=== PATIENT | male | born 1975 | race Caucasian/White ===

== ENCOUNTER 2023-01-02 00:46 | Day surgery (SDC) | payer OTHER, SELFPAY ==
[2022-12-23 13:32] VITALS: BMI 32.0
[2023-01-02 12:07] VITALS: BP 151/104; PULSE 59; RESP 18; TEMP 35.9; O2SAT 100
[2023-01-02] MEDS: LACTATED RINGERS 1,000 ML 150 ML IV CONT (12:10)
--- NOTE | 2023-01-02 12:28 | WPDANESEPPF ---
Anes - Initial Pre Proc Eval Procedure: Operation Date: 01/02/23 13:30 Proposed Procedures p Colonoscopy - Nasim Gallagher MD Date/Time: 01/02/23 12:28 Surgeon: Nasim Gallagher MD Pre Op Diagnosis: blood in stool Patient Data Age: 47 Gender: M Height: 1.83 m Weight: 104.3 kg Last Vital Signs Temp 35.9 C L 01/02/23 12:07 Pulse 59 L 01/02/23 12:07 Resp 18 01/02/23 12:07 BP 151/104 H 01/02/23 12:07 Pulse Ox 100 01/02/23 12:07 O2 Del Method Room Air 01/02/23 12:07 Allergies Allergy/AdvReac Type Severity Reaction Status Date / Time amoxicillin Allergy Unknown Nausea Verified 01/02/23 12:06 NSAIDS (Non-Steroidal Allergy Unknown Nausea Verified 01/02/23 12:06 Anti-Inflamma Home Medications Medication Instructions Recorded Confirmed Type irbesartan 300 mg tablet 300 mg PO DAILY 12/23/22 01/02/23 History rosuvastatin 10 mg tablet 10 mg PO DAILY 12/23/22 01/02/23 History Patient hx anesthesia problems: none Family hx anesthesia problems: none Results Review: All pre-operative results and documents have been reviewed as part of the pre-operative evaluation. [facility] Past Medical History Medical History (Updated 01/02/23 @ 12:29 by Timoteo Banks MD) HTN (hypertension) Obesity Surgical History Surgical History (Updated 01/02/23 @ 12:31 by Timoteo Banks MD) History of lumbar surgery Social History Social History Smoking status: Never smoker Alcohol intake: current Drinks per week: 2 Substance use: never Substance use type: does not use Living arrangements: with family Spiritual care concerns: No Anes - Eval Final PreProcedure Day of Procedure 01/02/23 12:28 Patient weight: obese Heart: regular rate and rhythm Lungs: clear to auscultation Airway: Mallampati scale class II Neurological: alert and oriented Last oral intake: >/= 8 hours ASA classification: II Emergent: no Anesthetic plan: proceed Anesthesia type and monitoring: general GIVS and standard monitoring Results Review: All pre-operative results and documents have been reviewed as part of the pre-operative evaluation. Informed Consent: The patient's anesthetic plan and its attendant risks and benefits were discussed with the patient/family/POA. Questions were solicited and answers provided to the satisfaction of the patient/family/POA.
--- NOTE | 2023-01-02 12:47 | PM.HPGS ---
History of Present Illness History of Present Illness Consent: Risks, benefits, and alternatives have been discussed and questions answered. Patient agrees to proceed with procedure. Chief complaint: blood in stool Narrative: Narendra Méndez is a 47 year old male her for first screening colonoscopy Review of Systems Constitutional: Constitutional: Denies headache(s) and Denies weakness Eyes: Eyes: Denies blurry vision ENT: Reports Normal hearing present, Denies headache(s) and Denies neck pain Cardiovascular: Cardiovascular: Denies chest pain and Denies dyspnea Respiratory: Respiratory: Denies dyspnea Gastrointestinal: Gastrointestinal: Reports no additional gastrointestinal complaints Genitourinary: Genitourinary: Denies dysuria Musculoskeletal: Musculoskeletal: Denies neck pain Integumentary/Breasts: Skin/Breast: Denies dry skin Neurologic: Reports Normal hearing present, Denies headache(s) and Denies weakness Psychiatric: Psychiatric: Denies anxiety Endocrine: Endocrine: Denies change in body appearance Hematologic/Lymphatic: Hematologic/Lymphatic: Denies easy bleeding Allergic/Immunologic: Allergic/Immunologic: Denies urticaria [facility] Past Medical History Medical History (Updated 01/02/23 @ 12:48 by Nasim Gallagher MD) Colon cancer screening HTN (hypertension) Obesity Surgical History Surgical History (Updated 01/02/23 @ 12:31 by Timoteo Banks MD) History of lumbar surgery Social History Social History Smoking status: Never smoker Alcohol intake: current Drinks per week: 2 Substance use: never Substance use type: does not use Living arrangements: with family Spiritual care concerns: No Meds Home Medications and Allergies Home Medications Medication Instructions Recorded Confirmed Type irbesartan 300 mg tablet 300 mg PO DAILY 12/23/22 01/02/23 History rosuvastatin 10 mg tablet 10 mg PO DAILY 12/23/22 01/02/23 History Allergies Allergy/AdvReac Type Severity Reaction Status Date / Time amoxicillin Allergy Unknown Nausea Verified 01/02/23 12:06 NSAIDS (Non-Steroidal Allergy Unknown Nausea Verified 01/02/23 12:06 Anti-Inflamma Vital Signs Vital Signs - 24 hr 01/02/23 12:07 Temperature 96.6 F L Pulse Rate 59 L Respiratory Rate 18 Blood Pressure 151/104 H Pulse Oximetry 100 Oxygen Delivery Room Air Exam Const: General: comfortable and no acute distress HENMT: Face/Nose/Sinus: Normal nares present Eyes: General: appearance normal, both eyes and all related structures Neck: Neck: no JVD Resp: Auscultation: clear to auscultation bilaterally Cardio: Rate: regular rate Rhythm: regular rhythm GI: Inspection: non-distended GI Palp: Yes Soft to palpation Skin: General skin exam: normal color Neuro: General: gait normal Speech: normal speech Extrem: General: normal to inspection Psych: Mental Status: mental status grossly normal Assessment and Plan Assessment and plan (1) Colon cancer screening: Code(s): Z12.11 - Encounter for screening for malignant neoplasm of colon Status: Acute Assessment and Plan: colonoscopy
[2023-01-02 13:04] VITALS: BP 124/87; PULSE 63; RESP 16; O2SAT 98
[2023-01-02 13:14] VITALS: BP 122/83; PULSE 55; RESP 13; O2SAT 98
[2023-01-02 13:24] VITALS: BP 132/88; PULSE 57; RESP 15; O2SAT 98
== END 2023-01-02 13:35 | disposition home or self-care (01) ==
PROVIDERS: PCP Emergency Medicine; Visit Provider Internal Medicine Gastroenterology
PROC: 0DJD8ZZ Inspection of Lower Intestinal Tract, Via Natural or Artificial Opening Endoscopic (ICD-10-PCS; CPT 45378; principal; 2023-01-02 13:30)
DX: Z12.11 Encounter for screening for malignant neoplasm of colon (principal); D12.3 Benign neoplasm of transverse colon; K64.8 Other hemorrhoids; I10 Essential (primary) hypertension; E66.9 Obesity, unspecified; Z68.31 Body mass index [BMI] 31.0-31.9, adult
CPT/HCPCS: 45385; 88305; J2704; J7120

== ENCOUNTER 2023-04-14 13:42 | Outpatient (CLI) | payer OTHER, SELFPAY ==
--- NOTE | ~2023-04-14 | XR_ITS ---
EXAMINATION: XR lumbar spine 2-3V DATE: 04/14/2023 14:00 INDICATION: Left leg paralysis TECHNIQUE: Anteroposterior and lateral views of the lumbar spine, and cone-down lateral view of the l umbosacral junction were obtained. COMPARISON: None. FINDINGS: Bone alignment is normal. There is no fracture. The vertebral body heights are maintained. There is moderate loss of intervertebral disc space height at L5-S1 and mild loss of intervertebral d isc space height at L4-5. 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 Calcified atherosclerosis is noted, somewhat disproportionate to expected for patient age. IMPRESSION: 1. Moderate lumbar spondylosis. If the patient truly has acute left lower limb paralysis, further bryan luation with MRI is recommended. 2. Calcified atherosclerosis disproportionate to expected for patient age. Reviewed, dictated and finalized at location [facility]. IMPRESSION: 1. Moderate lumbar spondylosis. If the patient truly has acute left lower limb paralysis, further evaluation with MRI is recommended. 2. Calcified atherosclerosis disproportionate to expected for patient age.
== END 2023-04-14 13:43 | disposition home or self-care (01) ==
LOC: ANHIMG 13:47
PROVIDERS: PCP Emergency Medicine; Visit Provider Emergency Medicine
DX: M47.896 Other spondylosis, lumbar region (principal)
CPT/HCPCS: 72100

== ENCOUNTER 2023-04-18 09:18 | Outpatient (CLI) | payer OTHER, SELFPAY ==
--- NOTE | ~2023-04-18 | MR_ITS ---
MRI of the lumbar spine Clinical History: Spondylosis Technique: Axial T2-weighted images, and sagittal T1-weighted, T2-weighted, and and T2 fat-sat images were acquired. Findings: There is no fracture or subluxation of the lumbar spine. Vertebral bodies maintain normal h eight and alignment. No bone marrow signal abnormality seen. At L1-L2 and L2-L3, there is no disc bulge or herniation. There is moderate facet arthropathy levels. No spinal canal stenosis or neural foraminal narrowing at these levels. At L3-L4, there is central large disc extrusion superimposed upon mild disc bulge. There is moderate facet arthropathy. There is severe spinal canal stenosis/thecal sac compression, largely related to t he disc extrusion. Bilateral neural foramina are preserved. At L4-L5, there is severe facet arthropathy. There is minimal disc bulge. There is no central canal s tenosis. There is mild bilateral neural foraminal narrowing. At L5-S1, there is no disc bulge or herniation. There is mild facet arthropathy. No spinal canal sten osis or definite neural foraminal narrowing. Paravertebral soft tissues are unremarkable. Impression: Large central disc extrusion at L3-L4, superimposed on disc bulge, resulting in severe spinal canal s tenosis/thecal sac compression. Additional degenerative changes in the lumbar spine, as detailed above, predominantly facet arthropat hy. Reviewed, dictated and finalized at [facility]. Impression: Large central disc extrusion at L3-L4, superimposed on disc bulge, resulting in severe spinal canal stenosis/thecal sac compression. Additional degenerative changes in the lumbar spine, as detailed above, predomi nantly facet arthropathy.
== END 2023-04-18 09:19 | disposition home or self-care (01) ==
PROVIDERS: PCP Emergency Medicine; Visit Provider Emergency Medicine
DX: M47.896 Other spondylosis, lumbar region (principal); M51.26 Other intervertebral disc displacement, lumbar region
CPT/HCPCS: 72148